=== PATIENT | male | born 1980 | race Caucasian/White ===

== ENCOUNTER 2017-04-26 10:39 | Emergency (ER) | payer BC ==
[2017-04-26] MEDS ORDERED: Alum Hydrox/Mag Hydrox/Simeth 15 ML, Metoclopramide 5 MG, Lidocaine 2% 5 ML PO ONE ×3 (10:51)
[2017-04-26] MEDS ORDERED: Sodium Chloride 0.9% 10 ML Syringe FLUSH PRN (10:52)
[2017-04-26] MEDS ORDERED: Sodium Chloride 0.9% 2.5 ML Syringe FLUSH PRN (10:52)
--- NOTE | 2017-04-26 10:54 | EDM.PDOC ---
ED HPI GENERAL MEDICAL PROBLEM - General Chief Complaint: Chest Pain Stated Complaint: CHEST PAIN Time Seen by Provider: 04/26/17 10:52 Source of Information: Reports: Patient History Limitations: Reports: No Limitations - History of Present Illness INITIAL COMMENTS - FREE TEXT/NARRATIVE: HISTORY AND PHYSICAL: []36-year-old male presenting with left upper chest pain History of Present Illness: []Patient describes having more indigestion type feeling for 3 days off and on He is quite anxious Review of Systems: As per history of present illness and below otherwise all systems reviewed and negative. Past medical history: As per history of present illness and as reviewed below otherwise noncontributory. Surgical history: As per history of present illness and as reviewed below otherwise noncontributory. Social history: No reported history of drug or alcohol abuse. Family history: As per history of present illness and as reviewed below otherwise noncontributory. Physical exam: Alert and oriented male speaking in full sentences looking somewhat anxious. no shortness of breath known HEENT: Atraumatic, normocehpalic, pupils reactive, negative for conjunctival pallor or scleral icterus, mucous membranes moist, throat clear, neck supple, nontender, trachea midline. Lungs: Clear to auscultation, breath sounds equal bilaterally, chest non tender. Heart: S1S2, regular, negative for clicks, rubs, or JVD. Abdomen: Soft, nondistended, nontender. Negative for masses or hepatossplenmegaly. Negative for costovertebral tenderness. Pelvis: Stable nontender. Genitourinary: Deferred. Rectal: Deferred Extremities: Atraumatic, negative for cords or calf pain. Neurovascular unremarkable. Neuro: Awake, alert, oriented. Cranial nerves II through XII unremarkable. Cerebellum unremarkable. Motor and sensory unremarkable throughout. Exam nonfocal. Discussed the negative left reports chest x-ray with this patient has given him the opportunity to be observed with telemetry and he has declined this opportunity. Diagnostics: [EKG CBC CMP troponin] Therapeutics: [Cocktail] Impression: [Atypical chest pain] Plan: []Discharged to home Take aspirin daily Follow-up with your primary care tomorrow Consider having a cardiology evaluation Definitive disposition and diagnosis as appropriate pending reevaluation and review of above. Onset: Gradual Duration: Day(s): (3) Location: Reports: Chest Left Chest Pain Score (Numeric/FACES): 4 - Related Data Allergies Allergy/AdvReac Type Severity Reaction Status Date / Time No Known Allergies Allergy Verified 04/26/17 10:50 Home Meds: Home Meds . [No Known Home Meds] 04/26/17 [History] ED ROS GENERAL - Review of Systems Review Of Systems: ROS reveals no pertinent complaints other than HPI. ED EXAM, GENERAL - Physical Exam Exam: See Below (See dictation) Course - Vital Signs Last Recorded V/S: Last Vital Signs Temp 36.6 C 04/26/17 10:47 Pulse 111 H 04/26/17 10:47 Resp 20 04/26/17 10:47 BP 145/95 H 04/26/17 10:47 Pulse Ox 100 04/26/17 10:47 - Orders/Labs/Meds Orders: Active Orders 24 hr Category Date Time Status EKG Documentation Completion [RC] STAT Care 04/26/17 10:52 Active Chest 2V [CR] Stat Exams 04/26/17 10:51 Taken Labs: Laboratory Tests 04/26/17 04/26/17 Range/Units 11:02 11:02 WBC 7.18 (4.0-11.0) K/uL RBC 5.38 (4.50-5.90) M/uL Hgb 15.6 (13.0-17.0) g/dL Hct 45.2 (38.0-50.0) % MCV 84.0 (80.0-98.0) fL MCH 29.0 (27.0-32.0) pg MCHC 34.5 (31.0-37.0) g/dL RDW Std Deviation 38.1 (28.0-62.0) fl RDW Coeff of Monique 13 (11.0-15.0) % Plt Count 281 (150-400) K/uL MPV 9.60 (7.40-12.00) fL Neut % (Auto) 57.9 (48.0-80.0) % Lymph % (Auto) 26.9 (16.0-40.0) % [place] % (Auto) 11.4 (0.0-15.0) % Eos % (Auto) 3.5 (0.0-7.0) % Baso % (Auto) 0.3 (0.0-1.5) % Neut # (Auto) 4.2 (1.4-5.7) K/uL Lymph # (Auto) 1.9 (0.6-2.4) K/uL [place] # (Auto) 0.8 (0.0-0.8) K/uL Eos # (Auto) 0.3 (0.0-0.7) K/uL Baso # (Auto) 0.0 (0.0-0.1) K/uL Nucleated RBC % 0.0 /100WBC Nucleated RBCs # 0 K/uL Sodium 136 (136-146) mmol/L Potassium 3.8 (3.5-5.1) mmol/L Chloride 105 (98-110) mmol/L Carbon Dioxide 23 (21-31) mmol/L BUN 15 (6.0-23.0) mg/dL Creatinine 1.0 (0.6-1.5) mg/dL Est Cr Clr Drug Dosing 110.86 mL/min Estimated GFR (MDRD) > 60.0 ml/min Glucose 211 H (60-110) mg/dL Calcium 9.0 (8.8-10.8) mg/dL Total Bilirubin 1.6 H (0.1-1.5) mg/dL AST 20 (5-40) IU/L ALT 32 (8-54) IU/L Alkaline Phosphatase 112 (40-150) Troponin I < 0.10 (0.0-0.29) NG/ML Total Protein 7.1 (6.0-8.0) g/dL Albumin 4.2 (3.5-5.0) g/dL Globulin 2.9 (2.0-3.5) g/dL Albumin/Globulin Ratio 1.5 (1.3-2.8) Meds: Medications Discontinued Medications Generic Name Dose Route Start Last Admin Trade Name Freq PRN Reason Stop Dose Admin Al Hydroxide/Mg Hydroxide 15 0 ml 04/26/17 10:51 04/26/17 11:13 ml/ Metoclopramide HCl 5 mg/ PO 04/26/17 10:52 25 each Lidocaine HCl 5 ml ONETIME ONE Administration Sodium Chloride 10 ml 04/26/17 10:52 Saline Flush FLUSH ASDIRECTED PRN Keep Vein Open Sodium Chloride 2.5 ml 04/26/17 10:52 Saline Flush FLUSH ASDIRECTED PRN Keep Vein Open Departure - Departure Time of Disposition: 11:55 Disposition: Home, Self-Care 01 Condition: Good Clinical Impression: Atypical chest pain Instructions: Nonspecific Chest Pain, [id number] Forms: ED Department Discharge Additional Instructions: The following information is given to patients seen in the emergency department who are being discharged to home. This information is to outline your options for follow-up care. We provide all patients seen in our emergency department with a follow-up referral. The need for follow-up, as well as the timing and circumstances, are variable depending upon the specifics of your emergency department visit. If you don't have a primary care physician on staff, we will provide you with a referral. We always advise you to contact your personal physician following an emergency department visit to inform them of the circumstance of the visit and for follow-up with them and/or the need for any referrals to a consulting specialist. The emergency department will also refer you to a specialist when appropriate. This referral assures that you have the opportunity for followup care with a specialist. All of these measure are taken in an effort to provide you with optimal care, which includes your followup. Under all circumstances we always encourage you to contact your private physician who remains a resource for coordinating your care. When calling for followup care, please make the office aware that this follow-up is from your recent emergency room visit. If for any reason you are refused follow-up, please contact the [facility] emergency department at and asked to speak to the emergency department charge nurse. Recommend that you take an aspirin daily Follow-up with your primary care provider tomorrow [facility] [address] [place] [id number] Consider a cardiology workup If any worsening of condition shortness of breath occurs in creasing chest pain return immediately to ER for reevaluation - My Orders Last 24 Hours: My Active Orders 04/26/17 10:51 Chest 2V [CR] Stat 04/26/17 10:52 EKG Documentation Completion [RC] STAT - Assessment/Plan Last 24 Hours: My Active Orders 04/26/17 10:51 Chest 2V [CR] Stat 04/26/17 10:52 EKG Documentation Completion [RC] STAT
[2017-04-26 11:35] LABS: CHLORIDE,CL 105 mmol/L (98-110); SODIUM,NA 136 mmol/L (136-146)
--- NOTE | 2017-04-27 16:29 | CR ---
EXAM DATE: 04/26/17 PATIENT'S AGE: 36 Patient: ENA PAREDES Facility: [place], [place] Site . Site : [id number] Study: XRay Chest [id number]/25/2017 11:37:35 AM Ordering Physician: Doctor Colón Final Report: INDICATION: Chest pain; shortness of breath. Comparison: None. Technique: Two-view chest. Findings: Normal size cardiac silhouette. Clear lung silva without evidence of acute pneumonic infiltrates or CHF. No pneumothorax or pleural effusion. Impression : Negative chest. Dictated by Radha Ling MD @ Apr 26 2017 11:41AM (Electronic Signature) Report Signed by Proxy. RADHA
== END 2017-04-26 12:04 | disposition home or self-care (01) ==
LOC: MW.ED 10:39
DX: R07.89 Other chest pain (principal)
CPT/HCPCS: 36415; 71020; 80053; 84484; 85025; 93005; 99285; A9270; 99283

== ENCOUNTER 2017-09-23 12:58 | Day surgery (SDC) | payer BC ==
[~2017-09-23 12:58] MED LIST: Betamethasone Acetate/Betamethasone Sod Phosphate 30 MG/5 ML MDV ONE; Iopamidol 408 MG/ML 50 ML SDV ONE; Lidocaine 2% 5 ML SDV ONE; Ropivacaine 0.5% 5 MG/ML 30 ML SDV ONE
--- NOTE | 2017-09-23 16:32 | OR ---
SURGEON: Phylicia Thomson D.O. DATE OF PROCEDURE: 09/23/2017 OR STAFF PRESENT: 1. Jordan Galeas RN. 2. Jordan Escobar RN. 3. RT Flores. WOUND CLASSIFICATION: I. PREOPERATIVE DIAGNOSES: 1. L5-S1 degenerative disk disease. 2. Lumbar radiculopathy. 3. Chronic low back pain. POSTOPERATIVE DIAGNOSES: 1. L5-S1 degenerative disk disease. 2. Lumbar radiculopathy. 3. Chronic low back pain. PROCEDURES PERFORMED: 1. Lumbar interlaminar epidural steroid injection at L5-S1. 2. Fluoroscopic guidance for needle placement. 3. Local with oral Valium for sedation. SCREENING QUESTIONS: The patient answered "no" to all of the following questions: 1. Are you allergic to latex? 2. Do you have a bleeding disorder? 3. Do you have any current local or systemic infections? 4. Are you taking any anti-inflammatories or blood thinners? 5. Do you have any joint replacements, heart valve replacements, or a pacemaker? DESCRIPTION OF PROCEDURE: The patient had the procedure thoroughly explained including all possible risks, benefits and alternatives. Consent was signed in my clinic indicating understanding and willingness to proceed. The patient presented to [facility] [place] and was escorted to the dressing room to disrobe and change into a hospital gown. Preoperative vital signs were taken and stable. The patient reported that Valium was taken prior to the procedure. The patient was brought back to the procedure room and placed in the prone position on the procedure room table. A pillow was placed under the hips in order to flatten the lumbar lordosis. The back was prepped with ChloraPrep and sterilely draped. All personnel in the operating room were dressed in appropriate attire including surgical scrubs, head and shoe covers. This was to ensure sterility while in the treatment room. During the time fluoroscopy was in use, all personnel in the operating room wore lead cassidy with thyroid collars. Sterile technique was used throughout the procedure. The patient was awake and conversant throughout the procedure. There was no evidence of infection at the site of needle insertion. Skeletal landmarks were identified under fluoroscopy for the lumbar epidural. Skin was anesthetized with 2% lidocaine with a sterile 27-gauge 1.5 inch needle. Then, a 20-gauge Tuohy epidural needle was placed in the epidural space with loss of resistance technique under fluoroscopic guidance. No heme, cerebrospinal fluid, or paresthesias were noted. Isovue-200 contrast dye was injected in 0.2 cubic centimeter increments and seen to outline the epidural space in both AP and lateral views. There was no intravascular flow pattern observed under live fluoroscopy. Then, 12 milligrams of Celestone was slowly injected after negative aspiration. The patient tolerated the procedure well. Vital signs were stable during and after the procedure. The staff escorted the patient to the recovery area and the patient was released in stable condition after a brief stay in the recovery room monitored by the nurse. The patient was given both oral and written discharge and follow up instructions with recommendation to follow up given for 2-3 weeks. The patient voiced understanding including understanding of those signs and symptoms that would require emergency care. The patient knows how to contact the office if there are any additional problems or questions in the meantime. PREOPERATIVE PAIN: 9/10. POSTOPERATIVE PAIN: 3/10. FOLLOWUP: Follow up in Pain Clinic in 3 weeks. JAMES / ASA /[id number]
== END 2017-09-23 14:43 ==
LOC: MW.SDS 12:58
PROVIDERS: ATTEND Anesthesiology
DX: G89.29 Other chronic pain (principal); M54.5 Low back pain; M51.17 Intervertebral disc disorders with radiculopathy, lumbosacral region; M79.1 Myalgia; F41.8 Other specified anxiety disorders; Z79.899 Other long term (current) drug therapy; Z87.891 Personal history of nicotine dependence
CPT/HCPCS: 62323; J0702; J2795; Q9966

== ENCOUNTER 2017-10-21 11:58 | Day surgery (SDC) | payer BC ==
--- NOTE | 2017-10-22 13:32 | OR ---
SURGEON: Phlyicia Thomson D.O. DATE OF PROCEDURE: 10/21/2017 PREOPERATIVE DIAGNOSIS: Lumbar facet arthropathy. POSTOPERATIVE DIAGNOSIS: Lumbar facet arthropathy. PROCEDURES PERFORMED: 1. Right L4/L5 facet joint injection. 2. Right L5/S1 facet joint injection. 3. Fluoroscopic guidance for needle placement. 4. Local with oral valium for sedation. SCREENING QUESTIONS: The patient answered "No" to all the following questions: 1. Are you allergic to iodine, Betadine or latex? 2. Do you have a bleeding disorder? 3. Are you on anti-inflammatories or blood thinners? 4. Do you have any current local or systemic infections? MEDICAL NECESSITY: This is a patient with chronic low back pain who comes in for the above diagnostic procedure. This procedure is being performed in accordance with national guidelines written by the [employer]; please see medical necessity note in chart. DESCRIPTION OF PROCEDURE: The patient had the procedure thoroughly explained including risks, benefits and alternatives. Consent was signed in my clinic indicating understanding and willingness to proceed. The patient presented to [facility] and was escorted to the dressing room to disrobe and change into a hospital gown. Preoperative history and screening were performed by my nurse. Vital signs were taken and stable. The patient reported that Valium 10 milligrams was taken prior to the procedure. The patient was brought back to the procedure room and placed in the prone position on the procedure room table. A pillow was placed under the abdomen in order to flatten the lumbar lordosis. The back was prepped with ChloraPrep and sterilely draped. All personnel in the procedure room were dressed in appropriate attire including surgical scrubs, head and shoe covers. This was to ensure sterility while in the treatment room. During the time fluoroscopy was in use all personnel in the operating room wore lead cassidy with thyroid collars. Sterile technique was used during the procedure. The fluoroscope was positioned to provide a right oblique view. Then the right L4-5 facet joint injection was begun by anesthetizing the skin and soft tissues with 2 cubic centimeters of 2% Preservative-Free Lidocaine with a 25-gauge 1.5 inch needle. There were no signs of infection at the site of needle skin insertions. Using fluoroscopic guidance a sterile 22-gauge 3.5 inch spinal needle was positioned at the junction of the "ear of the jeanette dog" . Precise needle placement was confirmed by fluoroscopy and 0.2 cubic centimeters of IsoVue-200 contrast dye which wasinjected through microbore tubing under live fluoroscopy and showed no intravascular flow pattern and adequate flow over the target. Then 1 cubic centimeters of celestone and 0.5% Ropivacaine Preservative-Free was injected slowly without complications after negative aspiration. Then the fluoroscope was positioned to provide a right oblique view for the right L4-L5 facet injection. This was begun by anesthetizing the skin and soft tissues. The fluoroscope was positioned and a sterile 22-gauge 3.5 inch needle was placed at the junction of the "ear of the jeanette dog" of. Precise needle placement was confirmed by fluoroscopy. Then 0.2 cubic centimeters of IsoVue-200 contrast dye was injected through microbore tubing under live fluoroscopy and showed no intravascular flow pattern and adequate flow over the target facet joint. After negative aspiration, 1 cubic centimeters of celestone and 0.5% Ropivacaine was injected without complications. The procedure was well tolerated and vital signs were stable during and after the procedure. The staff escorted the patient to the recovery area. The patient was given both oral and written discharge and followup instructions. The patient will follow up with a pain diary which will be evaluated over this evening doing things that would normally cause pain. The patient was given both oral and written discharge and followup instructions. The patient voiced understanding including understanding of those signs and symptoms that would require emergency care and knows how to contact the office if there are any questions or concerns in the meantime. Preoperative pain: 8/10. Postoperative pain: 3/10. Followup in the pain clinic in 3 weeks. JAMES / ASA /[id number] RADHA
== END 2017-10-21 13:55 ==
LOC: MW.SDS 11:58
PROVIDERS: ATTEND Anesthesiology
DX: M51.17 Intervertebral disc disorders with radiculopathy, lumbosacral region (principal); M47.27 Other spondylosis with radiculopathy, lumbosacral region; M79.1 Myalgia; F41.8 Other specified anxiety disorders; Z87.891 Personal history of nicotine dependence; Z79.899 Other long term (current) drug therapy
CPT/HCPCS: 64490; 64493; 64494; J0702; Q9966; J2795

== ENCOUNTER 2017-11-23 12:10 | Day surgery (SDC) | payer BC, OTHER ==
[2017-11-23] MEDS ORDERED: Ropivacaine 0.5% 5 MG/ML 30 ML SDV ONE (13:38)
[2017-11-23] MEDS ORDERED: Lidocaine 2% 5 ML SDV ONE (13:38)
[2017-11-23] MEDS ORDERED: Iopamidol 408 MG/ML 50 ML SDV ONE (13:38)
[2017-11-23] MEDS ORDERED: Betamethasone Acetate/Betamethasone Sod Phosphate 30 MG/5 ML MDV ONE (13:38)
--- NOTE | 2017-11-23 16:22 | OR ---
SURGEON: Phylicia Thomson D.O. DATE OF PROCEDURE: 11/23/2017 OR STAFF PRESENT: 1. Arsh He RN. 2. Jordan Aranda RN. 3. Itzel Pickett RT. WOUND CLASSIFICATION: I. PREOPERATIVE DIAGNOSES: 1. Lumbar degenerative disk disease, L4-5, L5-S1. 2. Lumbar herniated disk, L5-S1. 3. Lumbar radiculopathy. POSTOPERATIVE DIAGNOSES: 1. Lumbar degenerative disk disease, L4-5, L5-S1. 2. Lumbar herniated disk, L5-S1. 3. Lumbar radiculopathy. PROCEDURES PERFORMED: 1. Lumbar interlaminar epidural steroid injection at L5-S1. 2. Fluoroscopic guidance for needle placement. 3. Local with oral valium for sedation. SCREENING QUESTIONS: The patient answered "no" to all of the following questions: 1. Are you allergic to latex? 2. Do you have a bleeding disorder? 3. Do you have any current local or systemic infections? 4. Are you taking any anti-inflammatories or blood thinners? 5. Do you have any joint replacements, heart valve replacements, or a pacemaker? DESCRIPTION OF PROCEDURE: The patient had the procedure thoroughly explained including all possible risks, benefits and alternatives. Consent was signed in my clinic indicating understanding and willingness to proceed. The patient presented to [facility] and was escorted to the dressing room to disrobe and change into a hospital gown. Preoperative vital signs were taken and stable. The patient reported that Valium was taken prior to the procedure. The patient was brought back to the procedure room and placed in the prone position on the procedure room table. A pillow was placed under the hips in order to flatten the lumbar lordosis. The back was prepped with ChloraPrep and sterilely draped. All personnel in the operating room were dressed in appropriate attire including surgical scrubs, head and shoe covers. This was to ensure sterility while in the treatment room. During the time fluoroscopy was in use, all personnel in the operating room wore lead cassidy with thyroid collars. Sterile technique was used throughout the procedure. The patient was awake and conversant throughout the procedure. There was no evidence of infection at the site of needle insertion. Skeletal landmarks were identified under fluoroscopy for the lumbar epidural. Skin was anesthetized with 2% lidocaine with a sterile 27-gauge 1.5 inch needle. Then, a 20-gauge Tuohy epidural needle was placed in the epidural space with loss of resistance technique under fluoroscopic guidance. No heme, cerebrospinal fluid, or paresthesias were noted. Isovue-200 contrast dye was injected in 0.2 cubic centimeter increments and seen to outline the epidural space in both AP and lateral views. There was no intravascular flow pattern observed under live fluoroscopy. Then, 12 milligrams of Celestone was slowly injected after negative aspiration. The patient tolerated the procedure well. Vital signs were stable during and after the procedure. The staff escorted the patient to the recovery area and the patient was released in stable condition after a brief stay in the recovery room monitored by the nurse. The patient was given both oral and written discharge and follow up instructions with recommendation to follow up given for 2-3 weeks. The patient voiced understanding including understanding of those signs and symptoms that would require emergency care. The patient knows how to contact the office if there are any additional problems or questions in the meantime. PREOPERATIVE PAIN: 6/10. POSTOPERATIVE PAIN: 3/10. FOLLOWUP: Follow up in the pain clinic in 3 weeks. JAMES / ASA /[id number]
== END 2017-11-23 13:30 ==
LOC: MW.SDS 12:10
PROVIDERS: ATTEND Anesthesiology
DX: M51.17 Intervertebral disc disorders with radiculopathy, lumbosacral region (principal); M47.818 Spondylosis without myelopathy or radiculopathy, sacral and sacrococcygeal region; F41.8 Other specified anxiety disorders; Z79.899 Other long term (current) drug therapy; Z87.891 Personal history of nicotine dependence
CPT/HCPCS: 62323; J0702; J2795; Q9966

== ENCOUNTER 2018-08-23 01:36 | Emergency (ER) | payer MEDICAID ==
[2018-08-23] MEDS ORDERED: HYDROmorphone 2 MG/ML SDV IVPUSH ONE ×2 (02:00→03:44)
--- NOTE | 2018-08-23 02:16 | EDM.PDOC ---
ED HPI GENERAL MEDICAL PROBLEM - General Chief Complaint: Back Pain or Injury Stated Complaint: AMB Time Seen by Provider: 08/23/18 02:15 Source of Information: Reports: Patient - History of Present Illness INITIAL COMMENTS - FREE TEXT/NARRATIVE: HISTORY AND PHYSICAL: History of present illness: [Patient presents with low back pain is 10 out of 10, nonradiating patient had L5-S1 fusion prior in [place] is on hydrocodone at home O fever nausea vomiting chills sweats no chest pain shortness breath headache dizziness palpitation no bowel or urine symptoms no footdrop or saddle anesthesia ] Review of systems: As per history of present illness and below otherwise all systems reviewed and negative. Past medical history: As per history of present illness and as reviewed below otherwise noncontributory. Surgical history: As per history of present illness and as reviewed below otherwise noncontributory. Social history: No reported history of drug or alcohol abuse. Family history: As per history of present illness and as reviewed below otherwise noncontributory. Physical exam: HEENT: Atraumatic, normocephalic, pupils reactive, negative for conjunctival pallor or scleral icterus, mucous membranes moist, throat clear, neck supple, nontender, trachea midline. Lungs: Clear to auscultation, breath sounds equal bilaterally, chest nontender. Heart: S1S2, regular, negative for clicks, rubs, or JVD. Abdomen: Soft, nondistended, nontender. Negative for masses or hepatosplenomegaly. Negative for costovertebral tenderness. Pelvis: Stable nontender. Genitourinary: Deferred. Rectal: Deferred. Extremities: Atraumatic, negative for cords or calf pain. Neurovascular unremarkable. Neuro: Awake, alert, oriented. Cranial nerves II through XII unremarkable. Cerebellum unremarkable. Motor and sensory unremarkable throughout. Exam nonfocal. Skin shaan and surgical incision consistent with spinal fusion and lumbar area clean dry intact no redness warmth or exudate for culture Diagnostics: [Bar spine plain films ] Therapeutics: Dilaudid 2 mg IV, followed by Dilaudid 1 mg IV Continue [place] at home] Impression: []Low back pain improved/tolerable History of fusion L5-S1 Definitive disposition and diagnosis as appropriate pending reevaluation and review of above. Lower Back Pain Score (Numeric/FACES): 10 - Related Data Allergies Allergy/AdvReac Type Severity Reaction Status Date / Time No Known Allergies Allergy Verified 08/23/18 01:57 Home Meds: Home Meds Hydrocodone/Acetaminophen [Hydrocodon-Acetaminophen 5-325] 1 - 2 each PO Q6HR [History] tiZANidine [Zanaflex] 4 mg PO TID 08/23/18 [History] Past Medical History - Past Health History Medical/Surgical History: Denies Medical/Surgical History Psychiatric History: Reports: Anxiety Other Psychiatric History: Admits to anxiety - Past Surgical History Musculoskeletal Surgical History: Reports: Other (See Below) Other Musculoskeletal Surgeries/Procedures:: L5-S1 fusion Social & Family History - Family History Family Medical History: Noncontributory - Tobacco Use Smoking Status *Q: Former Smoker Used Tobacco, but Quit: Yes Month/Year Tobacco Last Used: 2015 - Caffeine Use Caffeine Use: Reports: Coffee - Recreational Drug Use Recreational Drug Use: No ED ROS GENERAL - Review of Systems Review Of Systems: See Below ED EXAM, GENERAL - Physical Exam Exam: See Below Course - Vital Signs Last Recorded V/S: Last Vital Signs Temp 97.7 F 08/23/18 01:53 Pulse 85 08/23/18 04:35 Resp 18 08/23/18 04:35 BP 105/59 L 08/23/18 04:35 Pulse Ox 94 L 08/23/18 04:35 - Orders/Labs/Meds Orders: Active Orders 24 hr Category Date Time Status Lumbar Spine 2 or 3V [CR] Stat Exams 08/23/18 02:52 Taken Meds: Medications Discontinued Medications Generic Name Dose Route Start Last Admin Trade Name Virgilio PRN Reason Stop Dose Admin Hydromorphone HCl 2 mg 08/23/18 02:00 08/23/18 02:25 Dilaudid IVPUSH 08/23/18 02:01 2 mg ONETIME ONE Administration Hydromorphone HCl Confirm 08/23/18 02:18 08/23/18 02:26 Dilaudid Administered 08/23/18 02:19 Not Given Dose 2 mg .ROUTE .STK-MED ONE Hydromorphone HCl 1 mg 08/23/18 03:44 08/23/18 04:15 Dilaudid IVPUSH 08/23/18 03:45 1 mg ONETIME ONE Administration Hydromorphone HCl Confirm 08/23/18 04:13 08/23/18 04:17 Dilaudid Administered 08/23/18 04:14 Not Given Dose 1 mg .ROUTE .STK-MED ONE Departure - Departure Time of Disposition: 06:09 Disposition: Home, Self-Care 01 Condition: Good Clinical Impression: Low back pain - Discharge Information Referrals: PCP,None [Primary Care Provider] - Forms: ED Department Discharge Additional Instructions: The following information is given to patients seen in the emergency department who are being discharged to home. This information is to outline your options for follow-up care. We provide all patients seen in our emergency department with a follow-up referral. The need for follow-up, as well as the timing and circumstances, are variable depending upon the specifics of your emergency department visit. If you don't have a primary care physician on staff, we will provide you with a referral. We always advise you to contact your personal physician following an emergency department visit to inform them of the circumstance of the visit and for follow-up with them and/or the need for any referrals to a consulting specialist. The emergency department will also refer you to a specialist when appropriate. This referral assures that you have the opportunity for follow-up care with a specialist. All of these measure are taken in an effort to provide you with optimal care, which includes your follow-up. Under all circumstances we always encourage you to contact your private physician who remains a resource for coordinating your care. When calling for follow-up care, please make the office aware that this follow-up is from your recent emergency room visit. If for any reason you are refused follow-up, please contact the [facility] emergency department at and asked to speak to the emergency department charge nurse. - My Orders Last 24 Hours: My Active Orders 08/23/18 02:52 Lumbar Spine 2 or 3V [CR] Stat - Assessment/Plan Last 24 Hours: My Active Orders 08/23/18 02:52 Lumbar Spine 2 or 3V [CR] Stat
[2018-08-23] MEDS ORDERED: HYDROmorphone 2 MG/ML Syringe ONE (02:18)
[2018-08-23] MEDS ORDERED: HYDROmorphone 1 MG/ML Syringe ONE (04:13)
--- NOTE | 2018-08-23 06:19 | CR ---
INDICATION: Recent back surgery. Pain. TECHNIQUE: Three views of the lumbar spine. COMPARISON: 07/30/2017. IMPRESSION: Postsurgical changes are seen from an L5-S1 discectomy with interbody device placement, as well as posterior decompression with posterior hardware fixation including paired pedicle screws at L5 and S1. The hardware is intact. No perihardware lucencies are seen to suggest hardware loosening or infection. The lumbar spine alignment is anatomic. There is no compression fracture. Intervertebral disc spaces at the non operative levels appear unremarkable. Dictated by Zane Mc MD @ 08/23/2018 6:17:15 AM Dictated by: Zane Mc MD @ 08/23/2018 06:17:31 (Electronically Signed)
== END 2018-08-23 06:30 | disposition home or self-care (01) ==
LOC: MW.ED 01:36
DX: M54.5 Low back pain (principal); Z87.891 Personal history of nicotine dependence; Z98.890 Other specified postprocedural states
CPT/HCPCS: 72100; 96374; 96376; 99283; J1170

== ENCOUNTER 2018-10-12 07:57 | Day surgery (SDC) | payer MEDICAID ==
[~2018-10-12 07:57] MED LIST changes: -Betamethasone Acetate/Betamethasone Sod Phosphate 30 MG/5 ML MDV ONE; -Iopamidol 408 MG/ML 50 ML SDV ONE; +Lactated Ringers 1,000 ML IV SCH; -Lidocaine 2% 5 ML SDV ONE; -Ropivacaine 0.5% 5 MG/ML 30 ML SDV ONE
[2018-10-12] MEDS ORDERED: fentaNYL 100 MCG/2 ML SDV ONE (08:38)
[2018-10-12] MEDS ORDERED: Propofol 200 MG/20 ML SDV ONE (08:38)
[2018-10-12] MEDS ORDERED: Midazolam 1 MG/ML 2 ML SDV ONE (08:38)
--- NOTE | 2018-10-12 09:16 | PCM.PREANE ---
Preanesthetic Assessment - Anesthesia/Transfusion/Family Hx Anesthesia History: Prior Anesthesia Without Reaction Family History of Anesthesia Reaction: No Transfusion History: No Prior Transfusion(s) Intubation History: Unknown - Review of Systems General: No Symptoms Pulmonary: No Symptoms Cardiovascular: No Symptoms Gastrointestinal: Abdominal Pain Neurological: No Symptoms Other: Reports: None - Physical Assessment O2 Sat by Pulse Oximetry: 97 Respiratory Rate: 16 Vital Signs: Last Vital Signs Temp 36.8 C 10/12/18 09:00 Pulse 71 10/12/18 09:00 Resp 16 10/12/18 09:00 BP 124/74 10/12/18 09:00 Pulse Ox 97 10/12/18 09:00 Height: 5 ft 10 in Weight: 101.151 kg ASA Class: 2 Mental Status: Alert & Oriented x3 Airway Class: Mallampati = 3 Dentition: Reports: Normal Dentition, Broken Tooth/Teeth (at the back side) Thyro-Mental Finger Breadths: 3 Mouth Opening Finger Breadths: 3 ROM/Head Extension: Full Lungs: Clear to Auscultation, Normal Respiratory Effort Cardiovascular: Regular Rate, Regular Rhythm - Allergies Allergies/Adverse Reactions: Allergies Allergy/AdvReac Type Severity Reaction Status Date / Time No Known Allergies Allergy Verified 10/12/18 08:58 - Blood Blood Available: No - Anesthesia Plan Pre-Op Medication Ordered: None - Acknowledgements Anesthesia Type Planned: MAC Pt an Appropriate Candidate for the Planned Anesthesia: Yes Alternatives and Risks of Anesthesia Discussed w Pt/Guardian: Yes Pt/Guardian Understands and Agrees with Anesthesia Plan: Yes PreAnesthesia Questionnaire - Past Health History Medical/Surgical History: Denies Medical/Surgical History Gastrointestinal History: Reports: GERD Musculoskeletal History: Reports: Back Pain, Chronic Neurological History: Reports: Other (See Below) Other Neuro History: degenerative disc disease Psychiatric History: Reports: Anxiety, Depression Other Psychiatric History: Admits to anxiety Endocrine/Metabolic History: Reports: Obesity/BMI 30+ - Past Surgical History Head Surgeries/Procedures: Reports: None HEENT Surgical History: Reports: Oral Surgery Neurological Surgical History: Reports: Lumbar Spine, Spinal Fusion Other Neurological Surgeries/Procedures: spinal fusion 08/15/18 Musculoskeletal Surgical History: Reports: Other (See Below) Other Musculoskeletal Surgeries/Procedures:: L5-S1 fusion - SUBSTANCE USE Smoking Status *Q: Former Smoker Tobacco Use Within Last Twelve Months: No Days Per Week of Alcohol Use: 2 Number of Drinks Per Day: 2 Total Drinks Per Week: 4 Recreational Drug Use History: No - HOME MEDS Home Medications: Home Meds Hydrocodone/Acetaminophen [Hydrocodon-Acetaminoph 7.5-325] 1 tab PO Q6H PRN 11/18 [History] - CURRENT (IN HOUSE) MEDS Current Meds: Current Medications Lactated Ringer's (Ringers, Lactated) 1,000 mls @ 125 mls/hr IV ASDIRECTED ALEXEI Last Admin: 10/12/18 08:57 Dose: 125 mls/hr Discontinued Medications Fentanyl (Sublimaze) Confirm Administered Dose 100 mcg .ROUTE .STK-MED ONE Stop: 10/12/18 08:39 Midazolam HCl (Versed 1 Mg/Ml) Confirm Administered Dose 2 mg .ROUTE .STK-MED ONE Stop: 10/12/18 08:39 Propofol (Diprivan 20 Ml) Confirm Administered Dose 200 mg .ROUTE .STK-MED ONE Stop: 10/12/18 08:39
--- NOTE | 2018-10-12 10:01 | PCM.OPNOTE ---
- General Post-Op/Procedure Note Date of Surgery/Procedure: 10/12/18 Operative Procedure(s): egd w bx Findings: [id number], severe esophagitis Pre Op Diagnosis: gerd Post-Op Diagnosis: esophagitis Anesthesia Technique: Moderate Sedation Primary Surgeon: Marcial Quiros Pathology: egd bx Complications: None Condition: Good
--- NOTE | 2018-10-12 10:23 | PCM.POSTAN ---
POST ANESTHESIA ASSESSMENT - MENTAL STATUS Mental Status: Alert, Oriented - RESPIRATORY Respiratory Status: Respiratory Rate WNL, Airway Patent, O2 Saturation Stable - CARDIOVASCULAR CV Status: Pulse Rate WNL, Blood Pressure Stable - GASTROINTESTINAL GI Status: No Symptoms - PAIN Pain Score: 0 - POST OP HYDRATION Hydration Status: Adequate & Stable - OBSERVATIONS Free Text/Narrative:: No anesthesia problems,patient skipped recovery room stage of postoperative care.
--- NOTE | 2018-10-12 11:09 | OR ---
SURGEON: Marcial Quiros MD DATE OF PROCEDURE: 10/12/2018 PREOPERATIVE DIAGNOSIS: Acid reflux. POSTOPERATIVE DIAGNOSIS: Severe esophagitis. PROCEDURE PERFORMED: Esophagogastroduodenoscopy with biopsy. DESCRIPTION OF PROCEDURE: EGD: The patient was taken to the endoscopy room, and with the REFRACTORY TILE HELPER, Diprivan was administered. A well-lubricated EGD scope was gently inserted through the oropharynx, down the esophagus, passing through the gastroesophageal junction, into the stomach. The mucosa was examined upon the passage. Any etiology will be noted. Once in the stomach, we continued to advance to the distal antrum, passed through the pylorus into the second portion of the duodenum. Again, the mucosa was examined for any abnormality and etiology. The scope was then retrieved back to the stomach and then retroflexed to look at the fundus of the stomach. If a biopsy was indicated, we will biopsy the antrum, body, and gastroesophageal junction. The air will be sucked out while the scope is retrieved to reduce the patient's discomfort. The patient tolerated the procedure well. There were no intraoperative complications. Dr. Quiros was present through the whole procedure. Prior to surgery, a time-out had been called, the patient identified, procedure identified and antibiotic administered. FINDINGS: 1. The patient is easily sedated with REFRACTORY TILE HELPER and Diprivan, the patient is soundly snoring. 2. Oropharynx and proximal esophagus are free of disease. Distal esophagus and GE junction at 40 show severe denuding erosive esophagitis with a little bit blood, not quite ulcer yet, but a flame-like structure [place] color change consist with severe esophagitis. Stomach rugae are normal in appearance and antrum is a little bit inflamed. Duodenum was grossly normal. Retrieved back to look at the fundus of stomach. There is no hiatal hernia. Biopsy done at antrum, body, and GE junction at 40. Did it three times and concerned about [place], and sucked out the gas while scope pulling out. The patient will benefit from a repeat EGD in six months from now and should be on esophageal ulcer medication. SHRUTI / ASA /[id number] RADHA
== END 2018-10-12 10:25 | disposition home or self-care (01) ==
LOC: MW.SDS 07:57
PROVIDERS: ATTEND Surgery
DX: K21.0 Gastro-esophageal reflux disease with esophagitis (principal); K29.50 Unspecified chronic gastritis without bleeding; M54.9 Dorsalgia, unspecified; G89.29 Other chronic pain; F41.9 Anxiety disorder, unspecified; E66.9 Obesity, unspecified; Z68.32 Body mass index [BMI] 32.0-32.9, adult; Z87.891 Personal history of nicotine dependence; Z98.890 Other specified postprocedural states
CPT/HCPCS: 43239; J2250; J2704; J3010; J7120; 00731

== ENCOUNTER 2019-04-05 07:43 | Day surgery (SDC) | payer MEDICAID ==
[~2019-04-05 07:43] MED LIST changes: +Lidocaine 2% 5 ML SDV ONE; +Midazolam 1 MG/ML 2 ML SDV ONE; +Ondansetron 4 MG/2 ML SDV ONE; +Propofol 200 MG/20 ML SDV ONE; +fentaNYL 100 MCG/2 ML SDV ONE
--- NOTE | 2019-04-05 08:54 | PCM.PREANE ---
Preanesthetic Assessment - Anesthesia/Transfusion/Family Hx Anesthesia History: Prior Anesthesia Without Reaction Family History of Anesthesia Reaction: No Transfusion History: No Prior Transfusion(s) Intubation History: Unknown - Review of Systems General: No Symptoms Pulmonary: No Symptoms Cardiovascular: No Symptoms Gastrointestinal: No Symptoms Neurological: No Symptoms Other: Reports: None - Physical Assessment NPO Status Date: 04/05/19 NPO Status Time: 01:00 Vital Signs: Last Vital Signs Temp 97.2 F 04/05/19 07:55 Pulse 77 04/05/19 07:55 Resp 16 04/05/19 07:55 BP 126/80 04/05/19 07:55 Pulse Ox 96 04/05/19 07:55 Height: 5 ft 10 in Weight: 107.501 kg ASA Class: 2 Mental Status: Alert & Oriented x3 Dentition: Reports: Normal Dentition ROM/Head Extension: Full Lungs: Clear to Auscultation, Normal Respiratory Effort Cardiovascular: Regular Rate, Regular Rhythm - Allergies Allergies/Adverse Reactions: Allergies Allergy/AdvReac Type Severity Reaction Status Date / Time No Known Allergies Allergy Verified 03/29/19 13:13 - Blood Blood Available: No - Anesthesia Plan Pre-Op Medication Ordered: None - Acknowledgements Anesthesia Type Planned: General Anesthesia Pt an Appropriate Candidate for the Planned Anesthesia: Yes Alternatives and Risks of Anesthesia Discussed w Pt/Guardian: Yes Pt/Guardian Understands and Agrees with Anesthesia Plan: Yes Additional Comments: PMH: anx/dep, gerd, smoker, chr low back pain PLAN: tiva PreAnesthesia Questionnaire - Past Health History Medical/Surgical History: Denies Medical/Surgical History Gastrointestinal History: Reports: GERD Musculoskeletal History: Reports: Back Pain, Chronic Neurological History: Reports: Other (See Below) Other Neuro History: degenerative disc disease Psychiatric History: Reports: Anxiety, Depression Other Psychiatric History: Admits to anxiety Endocrine/Metabolic History: Reports: Obesity/BMI 30+ - Past Surgical History Head Surgeries/Procedures: Reports: None HEENT Surgical History: Reports: Oral Surgery Other HEENT Surgeries/Procedures: wisdom teeth removed GI Surgical History: Reports: EGD Neurological Surgical History: Reports: Lumbar Spine, Spinal Fusion Other Neurological Surgeries/Procedures: spinal fusion 08/15/18 Musculoskeletal Surgical History: Reports: Other (See Below) Other Musculoskeletal Surgeries/Procedures:: L5-S1 fusion - SUBSTANCE USE Smoking Status *Q: Current Every Day Smoker Tobacco Use Within Last Twelve Months: Cigarettes Recreational Drug Use History: No - HOME MEDS Home Medications: Home Meds Omeprazole 20 mg PO DAILY 03/29/19 [History] - CURRENT (IN HOUSE) MEDS Current Meds: Current Medications Lactated Ringer's (Ringers, Lactated) 1,000 mls @ 125 mls/hr IV ASDIRECTED ALEXEI Discontinued Medications Fentanyl (Sublimaze) Confirm Administered Dose 100 mcg .ROUTE .STK-MED ONE Stop: 04/05/19 07:25 Lidocaine (Xylocaine-Mpf 2%) Confirm Administered Dose 5 ml .ROUTE .STK-MED ONE Stop: 04/05/19 07:26 Midazolam HCl (Versed 1 Mg/Ml) Confirm Administered Dose 2 mg .ROUTE .STK-MED ONE Stop: 04/05/19 07:26 Ondansetron HCl (Zofran) Confirm Administered Dose 4 mg .ROUTE .STK-MED ONE Stop: 04/05/19 07:25 Propofol (Diprivan 20 Ml) Confirm Administered Dose 200 mg .ROUTE .STK-MED ONE Stop: 04/05/19 07:25
[2019-04-05] MEDS ORDERED: Propofol 200 MG/20 ML SDV ONE (09:29)
--- NOTE | 2019-04-05 09:48 | PCM.OPNOTE ---
- General Post-Op/Procedure Note Date of Surgery/Procedure: 04/05/19 Operative Procedure(s): egd w bx Findings: see [id number] Pre Op Diagnosis: hx of exophagitis Post-Op Diagnosis: Same Anesthesia Technique: Moderate Sedation Primary Surgeon: Marcial Quiros Pathology: sent Complications: None Condition: Good
--- NOTE | 2019-04-05 10:21 | PCM.POSTAN ---
POST ANESTHESIA ASSESSMENT - MENTAL STATUS Mental Status: Alert, Oriented - VITAL SIGNS Vital Signs: Last Vital Signs Temp 97.2 F 04/05/19 07:55 Pulse 77 04/05/19 07:55 Resp 16 04/05/19 07:55 BP 126/80 04/05/19 07:55 Pulse Ox 96 04/05/19 07:55 - RESPIRATORY Respiratory Status: Respiratory Rate WNL, Airway Patent, O2 Saturation Stable - CARDIOVASCULAR CV Status: Pulse Rate WNL, Blood Pressure Stable - GASTROINTESTINAL GI Status: No Symptoms - POST OP HYDRATION Hydration Status: Adequate & Stable
--- NOTE | 2019-04-05 10:21 | PCM48HPAN ---
Post Anesthesia Note - EVALUATION WITHIN 48HRS OF ANESTHETIC Vital Signs in Normal Range: Yes Patient Participated in Evaluation: Yes Respiratory Function Stable: Yes Airway Patent: Yes Cardiovascular Function Stable: Yes Hydration Status Stable: Yes Pain Control Satisfactory: Yes Nausea and Vomiting Control Satisfactory: Yes Mental Status Recovered: Yes Vital Signs: Last Vital Signs Temp 97.2 F 04/05/19 07:55 Pulse 77 04/05/19 07:55 Resp 16 04/05/19 07:55 BP 126/80 04/05/19 07:55 Pulse Ox 96 04/05/19 07:55
--- NOTE | 2019-04-05 11:07 | OR ---
SURGEON: Marcial Quiros MD DATE OF PROCEDURE: 04/05/2019 PREOPERATIVE DIAGNOSIS: History of esophagitis. POSTOPERATIVE DIAGNOSIS: History of esophagitis. PROCEDURE PERFORMED: Esophagogastroduodenoscopy with biopsy. PRIMARY SURGEON: Marcial Quiros MD. COMPLICATIONS: None. DESCRIPTION OF PROCEDURE: EGD: The patient was taken to the endoscopy room, and with the COMMERCIAL PAINTER, Diprivan was administered. A well-lubricated EGD scope was gently inserted through the oropharynx, down the esophagus, passing through the gastroesophageal junction, into the stomach. The mucosa was examined upon the passage. Any etiology will be noted. Once in the stomach, we continued to advance to the distal antrum, passed through the pylorus into the second portion of the duodenum. Again, the mucosa was examined for any abnormality and etiology. The scope was then retrieved back to the stomach and then retroflexed to look at the fundus of the stomach. If a biopsy was indicated, we will biopsy the antrum, body, and gastroesophageal junction. The air will be sucked out while the scope is retrieved to reduce the patient's discomfort. The patient tolerated the procedure well. There were no intraoperative complications. Dr. Quiros was present through the whole procedure. Prior to surgery, a time-out had been called, the patient identified, procedure identified and antibiotic administered. FINDINGS: The patient is easily sedated with COMMERCIAL PAINTER and Diprivan. The patient is soundly snoring and oropharynx and proximal esophagus are free of disease. Distal esophagus at GE junction at 40 shows esophagitis with some skip lesion and a flame-like structure, salmon-colored change, consistent with moderate esophagitis. There is no jimmy ulcer or bleeding. Stomach rugae are normal in appearance and antrum is a bit inflamed. Duodenum was grossly normal. Retrieved back to look at the fundus of stomach, there was no hiatal hernia. Biopsy done at antrum, body, and GE junction at 40 and sucked out the gas while scope pulling out. The patient tolerated the procedure well. During the whole study, there was no blood or ulcer observed or bile or food particle. With the patient being treated for 6 months with a PPI, only show mild improvement. The patient would benefit to have a visit with a GI consult. SHRUTI / ASA /[id number]
== END 2019-04-05 10:25 | disposition home or self-care (01) ==
LOC: MW.SDS 07:43
PROVIDERS: ATTEND Surgery
DX: K21.0 Gastro-esophageal reflux disease with esophagitis (principal); F17.210 Nicotine dependence, cigarettes, uncomplicated; E66.9 Obesity, unspecified; Z68.34 Body mass index [BMI] 34.0-34.9, adult; Z79.899 Other long term (current) drug therapy
CPT/HCPCS: 43239; J2001; J2250; J2405; J2704; J3010; J7120

== ENCOUNTER 2021-12-22 08:48 | Day surgery (SDC) | payer OTHER ==
[~2021-12-22 08:48] MED LIST changes: -Midazolam 1 MG/ML 2 ML SDV ONE; -Ondansetron 4 MG/2 ML SDV ONE; +ePHEDrine 50 MG/ML SDV ONE
[2021-12-22] MEDS ORDERED: Ketamine 500 mg/10 ML MDV ONE (10:14)
[2021-12-22] MEDS ORDERED: Propofol 200 MG/20 ML SDV ONE ×2 (10:36→10:57)
[2021-12-22] MEDS ORDERED: Lactated Ringers 1,000 ML IV SCH (11:15)
== END 2021-12-22 11:35 | disposition home or self-care (01) ==
LOC: MW.SDS 08:48
PROVIDERS: ATTEND Surgery
DX: R19.4 Change in bowel habit (principal); K21.00 Gastro-esophageal reflux disease with esophagitis, without bleeding; K29.50 Unspecified chronic gastritis without bleeding; K25.9 Gastric ulcer, unspecified as acute or chronic, without hemorrhage or perforation; K44.9 Diaphragmatic hernia without obstruction or gangrene; B96.81 Helicobacter pylori [H. pylori] as the cause of diseases classified elsewhere; F41.8 Other specified anxiety disorders; E78.1 Pure hyperglyceridemia; E80.6 Other disorders of bilirubin metabolism; G89.18 Other acute postprocedural pain; E66.9 Obesity, unspecified; Z87.891 Personal history of nicotine dependence; Z79.899 Other long term (current) drug therapy; Z98.890 Other specified postprocedural states; Z68.30 Body mass index [BMI] 30.0-30.9, adult; Z98.1 Arthrodesis status
CPT/HCPCS: 43239; 45378; J2704; J3010; J3490; J7120; 00813